=== PATIENT | female | born 1970 | race Caucasian/White ===

== ENCOUNTER 2016-07-04 14:34 | Emergency (ER) | payer BC ==
[2016-07-04 14:56] VITALS: TEMP 98.9; BMI 28.7
[2016-07-04 15:40] LABS: URINE APPEARANCE CLOUDY; URINE BILIRUBIN NEGATIVE (NEGATIVE); URINE COLOR RED; URINE GLUCOSE (UA) 1+ (NEGATIVE); URINE KETONE NEGATIVE (NEGATIVE); URINE LEUK ESTERASE NEGATIVE (NEGATIVE); URINE NITRITE NEGATIVE (NEGATIVE); URINE UROBILINOGEN NEGATIVE E.U./dl (0.2-1.0)
[2016-07-04 15:43] LABS: URINE BLOOD 2+ (NEGATIVE); URINE PROTEIN 2+ (NEGATIVE)
[2016-07-04 15:48] LABS: URINE MUCUS FEW; URINE RBC 5766 /hpf (0-3)
[2016-07-04 16:16] LABS: BASOPHIL 0.5 % (0-2.0); EOSINOPHIL 2.6 % (0-4.5); MCH 29.1 pg (25.7-33.7); MCHC 33.4 g/dl (32.0-36.0); MEAN CELL VOLUME 87.3 fl (80-96); MEAN PLT VOLUME 8.4 fl (7.5-11.1); NEUTROPHILS 74.3 % (42.8-82.8); PLATELET COUNT 312 K/MM3 (134-434); RDW 14.6 % (11.6-15.6); WHITE BLOOD COUNT 9.9 K/mm3 (4.0-10.0)
--- NOTE | 2016-07-04 16:17 | PDOC ---
History of Present Illness - General Chief Complaint: Vaginal Bleeding Stated Complaint: VAGINAL BLEEDING, SORE THROAT Time Seen by Provider: 07/04/16 15:37 History Source: Patient Exam Limitations: No Limitations - History of Present Illness Initial Comments: 07/04/16 16:28 My chief complaint: Sore throat, nasal congestion, dry cough, times one week and vaginal bleeding times one month History of present illness: Patient is a 45-year-old female with a history of hypertension, hyperlipidemia, anemia, gastric reflux, and uterine fibroids here today complaining of nasal congestion, with sore throat, and dry cough and some frontal sinus pressure and bilateral maxillary sinus pressure times one week. Patient also reports having daily vaginal bleeding times one month at times patient reports going through 3 pads in 1 hour other times one pad in a few hours. Patient denies any suprapubic pain or any abdominal pain. Patient denies any headache dizziness or palpitations. She saw her lithographic proofer apprentice approximately 2 weeks ago and an ultrasound that revealed fibroids and endometrial thickening. Patient reports that she scheduled for an MRI of her abdomen on 07/19/2016. Patient has follow-up with Dr. Arellano. 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 Patient believes that she had a fever a few days ago that was subjective. 07/04/16 16:33 07/04/16 17:02 Timing/Duration: intermittent (one month of vaginal bleeding, sometimes) Associated Symptoms: reports: cough (dry cough), fever/chills (subjective few days ago ), other (sore throat, nasal congestion, vaginal bleeding for one month daily ). denies: headaches, nausea/vomiting, shortness of breath, syncope Past History - Past Medical History Allergies/Adverse Reactions: Allergies Allergy/AdvReac Type Severity Reaction Status Date / Time No Known Drug Allergies Allergy Verified 07/04/16 14:52 Home Medications: Ambulatory Orders Losartan Potassium 25 mg PO DAILY 07/31/14 Rosuvastatin Calcium [Crestor] 20 mg PO HS 07/31/14 Fexofenadine HCl [Catalina Allergy] 180 mg PO DAILY #7 tablet 07/04/16 Penicillin V Potassium [Pen Vee K -] 500 mg PO QID #28 tablet MDD 4 07/04/16 Anemia: Yes Asthma: No Cancer: No Cardiac Disorders: No CVA: No COPD: No CHF: No Dementia: No Diabetes: No GI Disorders: Yes (REFLUX) Disorders: No HTN: Yes Hypercholesterolemia: Yes Liver Disease: No Seizures: No Thyroid Disease: No - Surgical History Abdominal Surgery: Yes (LIPOSUCTION SX) Appendectomy: No Cardiac Surgery: No Cholecystectomy: No Lung Surgery: No Neurologic Surgery: No Orthopedic Surgery: No - Reproductive History Is Patient Now?: No - Psycho/Social/Smoking Cessation Hx Anxiety: No Suicidal Ideation: No Smoking History: Never smoked Have you smoked in the past 12 months: No Hx Alcohol Use: No Drug/Substance Use Hx: No Substance Use Type: None Hx Substance Use Treatment: No Review of Systems - Review of Systems Able to Perform ROS?: Yes Constitutional: Yes: Fever (subjective a few days ago ) HEENTM: Yes: Nose Congestion, Throat Pain, Other (sinus pressure frontal, b/l maxilla) Respiratory: Yes: Cough. No: Shortness of Breath, SOB with Exertion, SOB at Rest, Stridor, Wheezing, Productive cough, Hemoptysis Cardiac (ROS): No: Symptoms Reported ABD/GI: No: Symptoms Reported : Yes: Other (vagina bleeding X 1 mth at times heavy with clots) Musculoskeletal: No: Symptoms Reported Integumentary: No: Symptoms Reported Neurological: No: Symptoms reported *Physical Exam - Vital Signs Last Vital Signs Temp Pulse Resp BP Pulse Ox 98.9 F 105 H 19 148/84 100 07/04/16 14:52 07/04/16 14:52 07/04/16 14:52 07/04/16 14:52 07/04/16 14:52 - Physical Exam General Appearance: Yes: Appropriately Dressed HEENT: positive: TMs Normal, Pharyngeal Erythema, Tonsillar Erythema (with no uvular deviation), Nasal Congestion, Sinus Tenderness (frontal/maxilla b/l ). negative: Rhinorrhea Neck: positive: Lymphadenopathy (R), Lymphadenopathy (L) Respiratory/Chest: positive: Lungs Clear, Normal Breath Sounds. negative: Chest Tender, Respiratory Distress Cardiovascular: positive: Regular Rhythm, Regular Rate, S1, S2 Female Pelvic Exam: positive: normal external exam, normal adnexa, normal size ovaries, adnexal tenderness, vaginal bleeding (no clots noted, marichuy dark blood ) Gastrointestinal/Abdominal: positive: Normal Bowel Sounds, Soft. negative: Tender, Organomegaly, Distended, Guarding, Rebound, Tenderness, Hepatomegaly, Spleenomegaly Integumentary: positive: Normal Color Neurologic: positive: Fully Oriented, Alert, Normal Response, Responsive ED Treatment Course - LABORATORY CBC & Chemistry Diagram: 07/04/16 16:00 07/04/16 16:00 - ADDITIONAL ORDERS Additional order review: Laboratory Results 07/04/16 15:22 Urine Color Red Urine Appearance Cloudy Urine pH 6.0 Ur Specific [place] 1.017 Urine Protein 2+ H Urine Glucose (UA) 1+ H Urine Ketones Negative Urine Blood 2+ H Urine Nitrite Negative Urine Bilirubin Negative Urine Urobilinogen Negative Ur Leukocyte Esterase Negative Urine RBC 5766 Urine WBC None Ur Epithelial Cells Rare Urine Mucus Few Medical Decision Making - Medical Decision Making 07/04/16 17:00 Patient is a 45-year-old female with a history of hypertension, hyperlipidemia, anemia, gastric reflux, and uterine fibroids here today complaining of nasal congestion, with sore throat, and dry cough and some frontal sinus pressure and bilateral maxillary sinus pressure times one week. Patient also reports having daily vaginal bleeding times one month at times patient reports going through 3 pads in 1 hour other times one pad in a few hours. Patient denies any suprapubic pain or any abdominal pain. Patient denies any headache dizziness or palpitations. She saw her lithographic proofer apprentice approximately 2 weeks ago and an ultrasound that revealed fibroids and endometrial thickening. Patient reports that she scheduled for an MRI of her abdomen on 07/19/2016. Patient has follow-up with Dr. Arellano. 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 Patient believes that she had a fever a few days ago that was subjective. r/o strep throat r/o severe anemia PLAN: cbc with diff cmp u/a throat C &S + for beta hemolytic strep group A Laboratory Tests 07/04/16 07/04/16 16:00 16:00 WBC 9.9 RBC 3.29 L Hgb 9.6 L D Hct 28.7 L D MCV 87.3 MCHC 33.4 RDW 14.6 Plt Count 312 MPV 8.4 Neutrophils % 74.3 D Lymphocytes % 17.8 D Monocytes % 4.8 Eosinophils % 2.6 Basophils % 0.5 Sodium 138 Potassium 3.4 L Chloride 105 Carbon Dioxide 24 Anion Gap 9 BUN 13 Creatinine 0.6 Creat Clearance w eGFR > 60 Random Glucose 101 D Calcium 8.0 L Total Bilirubin 0.3 D AST 17 D ALT 29 D Alkaline Phosphatase 74 Total Protein 6.6 Albumin 3.3 L 07/04/16 17:01 Laboratory Tests 07/04/16 15:22 Urine Color Red Urine Appearance Cloudy Urine pH 6.0 Ur Specific [place] 1.017 Urine Protein 2+ H Urine Glucose (UA) 1+ H Urine Ketones Negative Urine Blood 2+ H Urine Nitrite Negative Urine Bilirubin Negative Urine Urobilinogen Negative Ur Leukocyte Esterase Negative Urine RBC 5766 Urine WBC None Ur Epithelial Cells Rare Urine Mucus Few 07/04/16 17:01 07/04/16 17:02 07/04/16 17:03 will treat with pen VK 500 mg qid for 7 days catalina 180 mg daily for 7 days pt.to follow up with Dr. Arellano as soon as possible *DC/Admit/Observation/Transfer Diagnosis at time of Disposition: Strep tonsillitis, Abnormal vaginal bleeding, Nasal congestion, Cough - Discharge Dispostion Disposition: HOME Condition at time of disposition: Stable - Prescriptions Prescriptions: Fexofenadine HCl [Catalina Allergy] 180 mg PO DAILY #7 tablet Penicillin V Potassium [Pen Vee K -] 500 mg PO QID #28 tablet MDD 4 - Referrals Referrals: Meaghan Strauss MD, MD [Primary Care Provider] - - Patient Instructions Additional Instructions: Follow-up with this week Return to emergency room if any palpitations, faint, or dizzy Fluids and rest and throat are throw out toothbrush at end of treatment Patient voiced understanding of discharge instructions and all questions were answered - Post Discharge Activity Work/School Note: Back to Work
[2016-07-04 16:48] LABS: ALBUMIN 3.3 g/dl (3.4-5.0); ANION GAP 9 (8-16); CO2 24 mmol/L (21-32); CREATININE 0.6 mg/dL (0.55-1.02); GLUCOSE,RANDOM 101 mg/dL (74-106); SGOT/AST 17 U/L (15-37); SGPT/ALT 29 U/L (12-78)
[2016-07-04 16:50] LABS: ALK PHOS 74 U/L (45-117); BILIRUBIN,TOTAL 0.3 mg/dL (0.2-1.0); TOT PROT 6.6 g/dl (6.4-8.2)
[2016-07-04 17:38] VITALS: BP 131/86; PULSE 94
== END 2016-07-04 17:36 | disposition home or self-care (01) ==
LOC: JER 14:34
DX: J03.00 Acute streptococcal tonsillitis, unspecified (principal); B95.0 Streptococcus, group A, as the cause of diseases classified elsewhere; N93.8 Other specified abnormal uterine and vaginal bleeding; I10 Essential (primary) hypertension; E78.00 Pure hypercholesterolemia, unspecified
CPT/HCPCS: 36415; 80053; 81003; 81015; 84703; 85025; 86850; 86900; 86901; 87070; 87430; 99283-25

== ENCOUNTER 2018-08-23 13:44 | Emergency (ER) | payer OTHER, BC ==
--- NOTE | 2018-08-23 13:50 | PDOC ---
Rapid Medical Evaluation Time Seen by Provider: 08/23/18 13:48 Medical Evaluation: Allergies Allergy/AdvReac Type Severity Reaction Status Date / Time No Known Drug Allergies Allergy Verified 07/04/16 14:52 08/23/18 13:48 HPI: fall and L hand and wrist, did not hit head; PE: No gross deficits L IUE ORDERS: X-ray L hand and wrist Discharge Disposition - Diagnosis Hand injury - Referrals - Patient Instructions - Post Discharge Activity
[2018-08-23 13:51] VITALS: BP 150/86; PULSE 82; TEMP 97.8; BMI 29.7
--- NOTE | 2018-08-23 14:35 | PDOC ---
History of Present Illness - General Chief Complaint: Injury Stated Complaint: FALL / LF HAND INJURY Time Seen by Provider: 08/23/18 13:48 History Source: Patient Exam Limitations: No Limitations - History of Present Illness Initial Comments: Patient is a 47-year-old female who states that she fell at work at 12:00 today on her left hand. She is right-hand dominant. Patient denies pain but admits to paresthesia to digits 2 through 5. Patient denies any aggravating or relieving factors. Pain is 0-10. 08/23/18 14:33 Past History - Travel Traveled outside of the country in the last 30 days: No Close contact w/someone who was outside of country & ill: No - Past Medical History Allergies/Adverse Reactions: Allergies Allergy/AdvReac Type Severity Reaction Status Date / Time No Known Drug Allergies Allergy Verified 08/23/18 13:49 Home Medications: Ambulatory Orders Losartan Potassium 25 mg PO DAILY 07/31/14 Rosuvastatin Calcium [Crestor] 20 mg PO HS 07/31/14 Anemia: Yes Asthma: No Cancer: No Cardiac Disorders: No CVA: No COPD: No CHF: No Dementia: No Diabetes: No GI Disorders: Yes (REFLUX) Disorders: No HTN: Yes Hypercholesterolemia: Yes Liver Disease: No Seizures: No Thyroid Disease: No - Surgical History Abdominal Surgery: Yes (LIPOSUCTION SX) Appendectomy: No Cardiac Surgery: No Cholecystectomy: No Lung Surgery: No Neurologic Surgery: No Orthopedic Surgery: No - Immunization History Immunization Up to Date: Yes - Suicide/Smoking/Psychosocial Hx Smoking History: Never smoked Have you smoked in the past 12 months: No Hx Alcohol Use: No Drug/Substance Use Hx: No Substance Use Type: None Hx Substance Use Treatment: No Review of Systems - Review of Systems Able to Perform ROS?: Yes Constitutional: No: Chills, Fever *Physical Exam - Vital Signs Last Vital Signs Temp Pulse Resp BP Pulse Ox 97.8 F 82 16 150/86 97 08/23/18 13:49 08/23/18 13:49 08/23/18 13:49 08/23/18 13:49 08/23/18 13:49 - Physical Exam Comments: Constitutional: VS stated, pt appears in no apparent distress; sitting in chair. Skin: Warm and dry. Intact, no lesions or excoriations. Head: Normocephalic; atraumatic Eyes: conjunctiva pink without injection or discharge. Throat: Oropharynx with pink and moist mucosa Lungs: Bilateral breath sounds clear upon auscultation. No adventitious breath sounds. Heart: Regular rate and rhythm, Musculoskeletal: Focused on the left hand. No rotational deformity. Patient can make a fist without difficulty. She can make an okay sign without difficulty. Patient can resist pressure digit without difficulty. Radial pulse present, cap refill unable to be obtained due to nail k[place]z. Sensation intact. Neurologic: Awake, alert. Conversation fluent. 08/23/18 14:34 ED Treatment Course - RADIOLOGY Radiology Studies Ordered: Pt's left hand xray was reviewed by myself as negative. 08/23/18 14:35 *DC/Admit/Observation/Transfer Diagnosis at time of Disposition: Hand injury Qualifiers: Encounter type: initial encounter Laterality: left Qualified Code(s): S69.92XA - Unspecified injury of left wrist, hand and finger(s), initial encounter - Discharge Dispostion Disposition: HOME Condition at time of disposition: Good - Referrals Referrals: Nina Jason MD [Primary Care Provider] - - Patient Instructions Printed Discharge Instructions: DI for Hand Injury Additional Instructions: Elevate the extremity. Ashkan wrap on for comfort measures. Ice 20 minutes on/20 the next 24 hours. Ibuprofen 600 mg every 6 hours. Follow-up the PCP fo worsening symptoms. - Post Discharge Activity
== END 2018-08-23 15:01 | disposition home or self-care (01) ==
LOC: JERFT 13:44
DX: S69.82XA Other specified injuries of left wrist, hand and finger(s), initial encounter (principal); W19.XXXA Unspecified fall, initial encounter; Y93.89 Activity, other specified; Y92.218 Other school as the place of occurrence of the external cause; Y99.0 Civilian activity done for income or pay; I10 Essential (primary) hypertension; E78.00 Pure hypercholesterolemia, unspecified; Z86.2 Personal history of diseases of the blood and blood-forming organs and certain disorders involving the immune mechanism
CPT/HCPCS: 73110-TC-LT-FY; 73130-TC-LT-FY; 99281-25

== ENCOUNTER 2021-03-16 07:08 | Emergency (ER) | payer BC ==
[2021-03-16 07:25] VITALS: BP 134/79; PULSE 70; TEMP 97.8; BMI 30.2
[2021-03-16] MEDS ORDERED: KETOROLAC TROMETHAMINE 30 MG/1 ML VIAL IM ONE (08:15)
[2021-03-16] MEDS ORDERED: METHOCARBAMOL 500 MG TABLET ONE (08:30)
[2021-03-16] MEDS ORDERED: KETOROLAC TROMETHAMINE 30 MG/1 ML VIAL ONE (08:31)
[2021-03-16] MEDS ORDERED: METHOCARBAMOL 500 MG TABLET PO SCH (10:00)
== END 2021-03-16 09:45 | disposition home or self-care (01) ==
LOC: JER 07:08 → JERFT 07:08
PROC: 3E0233Z Introduction of Anti-inflammatory into Muscle, Percutaneous Approach (ICD-10-PCS; principal; 2021-03-16)
DX: M54.50 Low back pain, unspecified (principal); X50.0XXA Overexertion from strenuous movement or load, initial encounter
CPT/HCPCS: 72100-TC-FY; 99284-25

== ENCOUNTER 2021-11-22 20:45 | Emergency (ER) | payer BC ==
[2021-11-22 21:13] VITALS: BP 144/93; PULSE 83; RESP 20; TEMP 98.2; BMI 28.5
== END 2021-11-22 23:21 | disposition home or self-care (01) ==
LOC: JER 20:45
DX: U07.1 COVID-19 (principal)
CPT/HCPCS: 99281-25

== ENCOUNTER 2022-02-28 16:41 | Emergency (ER) | payer BC ==
[2022-02-28 16:46] VITALS: BP 149/89; PULSE 90; RESP 18; TEMP 97.5; BMI 28.5
[2022-02-28] MEDS ORDERED: DEXAMETHASONE SOD PHOSPHATE 10 MG/1 ML VIAL IM ONE (17:41)
[2022-02-28] MEDS ORDERED: KETOROLAC TROMETHAMINE 30 MG/1 ML VIAL ONE (17:41)
[2022-02-28] MEDS ORDERED: KETOROLAC TROMETHAMINE 30 MG/1 ML VIAL IM ONE (17:41)
[2022-02-28] MEDS ORDERED: DEXAMETHASONE SOD PHOSPHATE 4 MG/1 ML VIAL ONE (17:42)
[2022-02-28 18:42] LABS: BASO % 0.8 % (0-2.0); HEMATOCRIT 38.4 % (32.4-45.2); LYMPH % 27.7 % (8-40); MCH 29.9 pg (25.7-33.7); MCHC 33.9 g/dl (32.0-36.0); MEAN CELL VOLUME 88.1 fl (80-96); MEAN PLT VOLUME 7.7 fl (7.5-11.1); MONO % 5.9 % (3.8-10.2); NEUT % 62.6 % (42.8-82.8); PLATELET COUNT 323 10^3/uL (134-434); RBC 4.36 M/mm3 (3.60-5.2); RDW 14.2 % (11.6-15.6); WHITE BLOOD COUNT 8.2 K/mm3 (4.0-10.0)
[2022-02-28 18:56] LABS: CALCIUM 9.3 mg/dL (8.5-10.1)
[2022-02-28 18:57] LABS: BLOOD UREA NITROGEN 15.3 mg/dL (7-18)
[2022-02-28 19:00] LABS: CREATININE 0.9 mg/dL (0.55-1.3)
[2022-02-28] MEDS ORDERED: AMOX TR/POT CLAV 875MG/125MG TABLETS (FP) PO ONE (21:03)
== END 2022-02-28 22:26 | disposition home or self-care (01) ==
LOC: JER 16:41 → JERFT 16:41
PROC: 3E023NZ Introduction of Analgesics, Hypnotics, Sedatives into Muscle, Percutaneous Approach (ICD-10-PCS; principal; 2022-02-28)
DX: J36 Peritonsillar abscess (principal)
CPT/HCPCS: 36415; 70491-TC; 80048; 85025; 87651; 99285-25; J1100; Q9967

== ENCOUNTER 2022-12-23 16:21 | Emergency (ER) | payer BC ==
[2022-12-23 16:33] VITALS: BP 137/69; PULSE 91; RESP 18; TEMP 98.2; BMI 31.2
[2022-12-23] MEDS ORDERED: IBUPROFEN 600 MG TABLET (FP) PO ONE ×2 (16:45→16:48)
== END 2022-12-23 18:13 | disposition home or self-care (01) ==
LOC: JERFT 16:21
DX: S50.01XA Contusion of right elbow, initial encounter (principal); S50.11XA Contusion of right forearm, initial encounter; R22.31 Localized swelling, mass and lump, right upper limb; W01.0XXA Fall on same level from slipping, tripping and stumbling without subsequent striking against object, initial encounter; Y93.01 Activity, walking, marching and hiking
CPT/HCPCS: 73090-TC-RT-FY; 99283-25

== ENCOUNTER 2023-09-30 20:43 | Emergency (ER) | payer BC ==
[2023-09-30 20:54] VITALS: BP 156/74; PULSE 90; RESP 18; TEMP 98.3; BMI 30.4
[2023-09-30 21:50] LABS: EPI CELLS 5 /uL (0-25.1); HYALINE CASTS 1 /uL (0-3.1); URINE APPEARANCE TURBID; URINE BACTERIA 1125 /uL (0-1359); URINE BILIRUBIN NEGATIVE (NEGATIVE); URINE COLOR YELLOW; URINE GLUCOSE (UA) NEGATIVE (NEGATIVE); URINE KETONE NEGATIVE (NEGATIVE); URINE LEUK ESTERASE 2+ (NEGATIVE); URINE NITRITE NEGATIVE (NEGATIVE); URINE PROTEIN 1+ (NEGATIVE); URINE RBC 1472 /uL (0-23.9); URINE WBC 950 /uL (0-25.8)
[2023-09-30] MEDS ORDERED: CEPHALEXIN MONOHYDRATE 500 MG CAPSULE (UD) ONE (21:59)
[2023-09-30] MEDS: CEPHALEXIN MONOHYDRATE 500 MG CAPSULE (UD) PO ONE (22:01)
== END 2023-09-30 22:17 | disposition home or self-care (01) ==
LOC: JERFT 20:43
DX: N39.0 Urinary tract infection, site not specified (principal); R35.0 Frequency of micturition; R39.15 Urgency of urination
CPT/HCPCS: 81003; 87086; 87186; 99283-25